=== PATIENT | male | born 1950 | race Caucasian/White ===

== ENCOUNTER 2020-07-26 14:42 | Outpatient (REF) | payer BC, SELFPAY ==
--- NOTE | ~2020-07-26 | XR_ITS ---
EXAMINATION: XR CHEST CLINICAL INFORMATION: Hemoptysis for 5 days COMPARISON: None TECHNIQUE: 2 views of the chest were obtained. FINDINGS: There is no acute airspace consolidation, groundglass opacity, atelectasis, or effusion. The heart is normal in size. The costophrenic sulci are clear. The hilar and mediastinal contours are unremarkable. Bony structures again show degenerative changes in the thoracic spine with some scattered bridging osteophytes. Right paraspinal bridging osteophyte again suggested at the T6-T7 overlying lower right paratracheal region. There are incidental calcified costal cartilages. XR/XR chest 2V IMPRESSION: Unremarkable examination.
== END 2020-07-26 14:43 | disposition home or self-care (01) ==
LOC: HO.HMGCX 14:42
PROVIDERS: PCP Internal Medicine; Visit Provider Internal Medicine
DX: R04.2 Hemoptysis (principal)
CPT/HCPCS: 71046

== ENCOUNTER 2020-12-06 14:03 | Outpatient (REF) | payer BC, MEDICARE, SELFPAY ==
--- NOTE | ~2020-12-06 | XR_ITS ---
EXAMINATION: XR LUMBOSACRAL SPINE CLINICAL INFORMATION: Lower back pain. COMPARISON: Lumbar spine MRI dated 11/17/2014. TECHNIQUE: 3 views of the lumbosacral spine. FINDINGS: Mild levocurvature of the lumbar spine. The lumbar lordosis is maintained. No acute fracture or subluxation. No loss of vertebral body height. Multilevel loss of intervertebral disc height with prominent anterior endplate osteophytes. Bilateral facet arthropathy at L4-S1. No lytic or blastic osseous lesion. Atherosclerotic calcifications. XR/XR lumbar spine 2-3V IMPRESSION: Prominent multilevel degenerative disc disease with bilateral facet arthropathy at L4-S1. Findings have progressed when compared to the prior MRI.
== END 2020-12-06 14:04 | disposition home or self-care (01) ==
LOC: HO.HMGCX 14:03
PROVIDERS: PCP Internal Medicine; Visit Provider Internal Medicine
DX: Z13.89 Encounter for screening for other disorder (principal)
CPT/HCPCS: 72100

== ENCOUNTER 2020-12-17 08:46 | Outpatient (REF) | payer BC, MEDICARE, SELFPAY ==
--- NOTE | ~2020-12-17 | MR_ITS ---
EXAMINATION: MR LUMBAR SPINE WITHOUT CONTRAST CLINICAL INFORMATION: Low back pain with radiculopathy. Left-sided paresthesias. COMPARISON: Lumbar spine radiographs 12/06/2020. Lumbar spine MRI 11/17/2014. TECHNIQUE: MRI of the lumbar spine was obtained using routine sequences without contrast. FINDINGS: There is spinal scoliosis with a subtle leftward convex curvature centered at L3. Slight left lateral subluxation of L3 on L4. Alignment is otherwise normal in the sagittal dimension. Vertebral heights are preserved. Minimal type I degenerative endplate changes at L2-L3, L3-L4, and L4-L5. There is loss of intervertebral disc height and T2 signal intensity at multiple levels related to disc degeneration. The conus medullaris is located at L1-L2. No mass effect on the conus. Visualized distal cord signal intensity is normal. At L1-L2 there is a slightly bulging disc. Bilateral facet degenerative change. No canal stenosis. No mass effect on the traversing or foraminal nerve roots. At L2-L3 there is a diffusely bulging disc. Bilateral facet degenerative change. No canal stenosis. No mass effect on traversing or foraminal nerve roots. At L3-L4 there is a diffusely bulging disc. Bilateral facet degenerative change. Moderate to severe canal stenosis. Subarticular zone narrowing causes abutment and possible compression of both traversing L4 nerve roots. Mild mass effect on the foraminal/extraforaminal segment of the right L3 nerve root. At L4-L5 there is a tiny central extrusion superimposed upon a bulging disc with 0.4 cm caudal subligamentous extension of extruded disc material. Bilateral facet degenerative change. No canal stenosis. No mass effect on the traversing or foraminal nerve roots. At L5-S1 there is an asymmetrically bulging disc to the left. Bilateral facet degenerative change. No canal stenosis. Moderate compression of the left L5 foraminal nerve root. Limited visualization of the retroperitoneal anatomy reveals no abnormal finding. Psoas and paraspinal muscle groups are symmetric. MR/MR lumbar spine wo con IMPRESSION: There is multilevel degenerative spondylosis of the lumbar spine. Moderate to severe canal stenosis at L3-L4. Otherwise no canal compromise. There are varying degrees of mass effect on the traversing and foraminal segments the nerve roots as described above. For instance at L5-S1 there is moderate to severe compression of left L5 foraminal nerve root.
== END 2020-12-17 08:47 | disposition home or self-care (01) ==
LOC: HO.MRI 08:46
PROVIDERS: PCP Internal Medicine; Visit Provider Internal Medicine
DX: M54.16 Radiculopathy, lumbar region (principal); R20.2 Paresthesia of skin
CPT/HCPCS: 72148

== ENCOUNTER 2024-06-07 13:19 | Outpatient (AMB) | payer BC, MEDICARE, SELFPAY ==
--- OUTSIDE RECORDS SUMMARY | 2024-06-07 13:21 | XMS_ITS ---
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 Generated for Gioi kameron/Orly/eTransmitting on:?06/07/2024 01:21 PM EDT
--- OUTSIDE RECORDS SUMMARY | 2024-06-07 13:22 | XMS_ITS | Patient Health Record ---
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 Accordion Tuner Name Role Phone David Guevara MD Primary Care Provider Unavailab Tone Claudio Unavailable [phone] Allergies No Known Allergies Reason For Referral No Information Medications Medication SIG (Take, Route, Fr equency, Duration) Notes Start Date End Date Status Gabapentin 800 MG 1 tablet Orally Once a day Active Warfarin Sodium Not- Taking Ezetimibe 10 MG 1 tablet Orally Once a day Active Social History Tobacco Use: Social History Observation Description Date Details (start date - stop date) Current Smoker NA - NA Tobacco use other than smoking: Question Answer Notes Are you an other tobacco user? No Tobacco Control (Standard) Question Answer Notes Tobacco use: Current smoker How many cigarettes a day do you smoke? 11-20 Additional Findings: Tobacco user Modera te cigarette smoker (10-19 cigs/day) AUDIT-C (Standard) Question Answer Notes Did you have a drink containing alcohol in the p ast year? No Points 0 Interpretation Negative Problems Problem Type SNOMED Code ICD Code Onset Dates Problem Status W/U Status Risk Notes Problem Atherosclerosis of [place] arteries of the extremities ([id number]) Atherosclerosis of [place] artery of both lower extremities, with unspecified presence of clinical manifestation (I70.203) Active confirmed Q7(A), Q8(2B), Q9(1B,2 C) Vital Signs Blood pressure diastolic 80 mm Hg 03/18/2024 Height 5ft 10in in 03/18/2024 Blood pressure systolic 125 mm Hg 03/18/2024 Weight 190 lbs 03/18/2024 BMI 27.26 kg/m2 03/18/2024 Encounters Encounter Location Date Provider Diagnosis [facility] [address] [address] 03/18/2024 Tone Thomas Pain in left foot M79.672 ; Pain in left ankle and joints of left foot M25.572 ; Bursitis of intermetatarsal bursa of left foot M77.52 ; Metatarsalgia, left foot M77.42 and Atherosclerosis of [place] artery of both lower extremities, with unspecified presence of clinical manifestation I70.203 [facility] [address] [address] 03/18/2024 Tone Thomas Assessments Encounter Date Diagnosis (ICD Code) Assessment Notes Treatment Notes Treatment Clinical Notes Section Notes 03/18/2024 Pain in left ankle and joints of left foot (ICD-10 - M25.572) 03/18/2024 Pain in left foot (ICD-10 - M79.672) 03/18/2024 Bursitis of intermetatarsal bursa of left foot (ICD-10 - M77.52) 03/18/2024 Metatarsalgia, left foot (ICD-10 - M77.42) 03/18/2024 Atherosclerosis of [place] artery of both lower extremities, with unspecified presence of clinical manifestation (ICD-10 - I70.203) Q7(A), Q8(2B), Q9(1B,2C) Plan Of Treatment Pending Test Test Name Order Date X ray : Foot, right 2V 12/17/2013 X ray : Foot, left 3V 05/28/2013 X ray : Foot, left 3V 03/18/2024 [id number] TENDON SHEATH/LIGAMENT 1 03/23/[id number] TENDON SHEATH/LIGAMENT 0 06/10/2014 60500, [id number] Neuroma/Injection 04/01/19 16 Insurance Providers Payer Name Payer Address Payer Phone Subscriber Number Group Number Insured Name Patient Relationship to Insured Coverage Start Date Coverage End Date [employer] 65 Medicare Preferred [address] [place] [address] [phone] [id number] David Varma Self - patient is the insured Medical (General) History Medical History History ICD Code Back,Hip,and Knee pain Measles Chicken pox blood clots Arthritis Surgical History Surgery Date(Month/Year) knee surgery shoulder surgery Hospitalization History Reason Date(Month/Year) Patient went to [facility] ER for a blood clot in his left leg. 10/14/2013
--- OUTSIDE RECORDS SUMMARY | 2024-06-07 13:22 | XMS_ITS ---
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 Name Role Phone David Guevara MD Primary Care Provider Unavailab Tone Claudio Unavailable [phone] Allergies No Known Allergies REASON FOR VISIT Foot pain Medications Medication SIG (Take, Route, Fr equency, [...] W/U Status Risk Notes Problem Atherosclerosis of [place] arteries of the extremities ([id number]) Atherosclerosis of [place] artery of both lower extremities, with unspecified presence of clinical manifestation (I70.203) Active confirmed Q7(A), Q8(2B), Q9(1B,2 C) Vital Signs Height 5ft 10in in 03/18/2024 Weight 190 lbs 03/18/2024 BMI 27.26 kg/m2 03/18/2024 Blood pressure systolic 125 mm Hg 03/18/20 24 Blood pressure diastolic 80 mm Hg 024 Encounters Encounter Location Date Provider Diagnosis [facility] [address] [place] [address] 03/18/2024 Tone Thomas Pain in left foot M79.672 ; Pain in left ankle and joints of left foot M25.572 ; Bursitis of intermetatarsal bursa of left foot M77.52 ; Metatarsalgia, left foot M77.42 and Atherosclerosis of [place] artery of both lower extremities, with unspecified presence of clinical manifestation I70.203 Assessments Encounter Date Diagnosis (ICD Code) Assessment Notes Treatment Notes Treatment Clinical Notes Section Notes 03/18/2024 Pain in left foot (ICD-10 - M79.672) 03/18/2024 Pain in left ankle and joints of left foot (ICD-10 - M25.572) 03/18/2024 Bursitis of intermetatarsal bursa of left foot (ICD-10 - M77.52) 03/18/2024 Metatarsalgia, left foot (ICD-10 - M77.42) 03/18/2024 Atherosclerosis of [place] artery of both lower extremities, with unspecified presence of clinical manifestation (ICD-10 - I70.203) Q7(A), Q8(2B), Q9(1B,2C) Plan Of Treatment Pending Test Test Name Order Date X ray : Foot, left 3V 03/18/2024 Next Appt Details Follow Up: prn, Reason: Progress Notes * David VARMA MDOB:1950 (73 yo M)Acc No.[id number]:03/18/2024 Progress Notes Patient:?David VARMA Provider:?Tone Guzman DPM :1950???Age:73 Y???Sex:Male Ming e:03/18/2024 Address:[address] [place], [place] [id number] Pcp:David Guevara MD Subjective: * Chief Complaints: * ???Foot pain * HPI: ???Foot Pain:?Location:?Bottom, Forefoot, LEFT.?Duration:?several years.?Course:?worse.?Aggravated:?any pressure, standing, walking.?Treatments:?rest/alter normal daily activity, change in shoes, innersoles which are several years old, medication ( oral anti-inflammatories - Naproxen, Gabapentin?).? * ROS:?General/Constitutional:?Nausea?denies.?Vomiting?denies.?Hunger Thirst?denies.?Loss appetite?denies.?Chills?denies.?Fatigue?denies.?Fever?denies.?Night Sweats?denies.?Unexplained weight loss?denies.?Ophthalmologic:?Blurred vision?denies.?Red eye?denies.?HEENTM:?Dentures?denies.?Dizziness?denies.?Glasses/contacts?denies.?Retinopathy?de nies.?Blurred/double vision?denies.?TMJ?denies.?Discharge/drainage?denies.?Implants?denies.?Hard of hearing denies.?Difficulty chewing/swallowing/speaking?denies.?Nose bleeds?denies.?Sore mouth?denies.?Swollen glands?denies.?Respiratory:?On Oxygen?denies.?Pneumonia/pleurisy?denies.?Bronchitis?denies.?Emphysema?denies.?C oughing?denies.?Cough blood?denies.?Shortness of breath?denies.?Wheezing?denies.?Cardiovascular:?Pacemaker?denies.?MVP?denies.?WPW?denies.?CHF?denies.?Heart attack?denies.?Septal defect?denies.?Rapid beat?denies.?Chest pain ?denies.?Atrial Fib.?denies.?Murmur/Palpitations?denies.?Gastrointestinal:?Hemorrhoids?denies.?Stomach/Abdominal pain?denies.?Dark blood stool?denies.?Irritable bowel ?denies.?Constipation?denies.?Diarrhea?denies.?Vomiting?denies.?Hematology:?Swelling?denies.?Bruising?denies.?Bleeding problem?denies.?Genitourinary:?Blood urine?denies.?Frequent/Painfu/urination/bladder control?denies.?Kidney stones?denies.?Infection (UTI)?denies.?Nephropathy?denies.?Musculoskeletal:?Hammertoes?denies.?Bunions?denies.?Scoliosis/kyphosis?denies.?Muscle cramps / walking?denies.?Generalized aches and pains?admits.?Weakness?denies.?Integ.:?[place]?denies.?Scars?denies.?Corns/calluses?denies.?Ingrown nails?denies.?Painful nails?denies.?Rashes?denies.?Neurologic:?Difficulty sleeping?denies.?Bipolar?denies.?Brain disorder?denies.?Balance trouble?denies.?Confusion?denies.?Fainting/blackouts?denies.?Headache?denies.?Tr emors?denies.? * Medical History:? * Surgical History:?knee surge ry shoulder surgery * Hospitalization/Major Diagno stic Procedure:?Patient went to [facility] for a blood clot in his left leg. 10/14/2013 * Family History:?Mother: dece ased, diagnosed with Unspecified cerebral artery occlusion with cerebral infarction.?Father: , diagnosed with Other malignant neoplasm of unspecified site.? * Social History:?Tobacco Use:?Tobacco use other than smoking?Are you an other tobacco user??No ?Tobacco Control (Standard)?Tobacco use:?Current smoker ?How many cigarettes a day do you smoke??11-20 ?Additional Findings: Tobacco user?Moderate cigarette smoker (10-19 cigs/day) ???Drugs/Alcohol:?Drugs?Have you used drugs other than those for medical reasons in the past 12 months??No ???Miscellaneous:?Caffeine: yes, 2-3 cups per day. ?Children: yes, 2. ?Exercise: yes. ?Marital status: . ?Occupation: Retired. ???Drug/Alcohol:?AUDIT-C (Standard)?Did you have a drink containing alcohol in the past year??No ?Points?0 ?Interpretation?Negative * Medications:?TakingEzetimibe 10 MG Tablet 1 tablet Orally Once a day Gabapentin 800 MG Tablet 1 tablet Orally Once a day Taking Ezetimibe 10 MG Tablet 1 tablet Orally Once a day Taking Gabapentin 800 MG Tablet 1 tablet Orally Once a day Not-Taking/PRNWarfarin Sodium Medication List reviewed and reconciled with the patientNot-Taking/PRN Warfarin Sodium Medication List reviewed and reconciled with the patient * Allergies:?N.K.D.A.yes[Tanvir lyons Verified] Objective: * Vitals:?Ht: 5ft 10in, Wt:190 , BMI:27.26, Shoe size: 13, BP:125/80mm Hg, Ht-cm: 177.8 cm, Wt-k.18 kg. * Examination: ???Orthopedic: ?MUSCLE STRENGTH:?5/5 all groups in a symmetrical fashion, B/L.?GAIT ABNORMALITY:?antalgic.?FOOT MORPHOLOGY:?Pes Cavus structure.?MPJ PATHOLOGY:? Pain, swelling, and inflammation to plantar MPJ(s),2nd,3rd, LEFT, No MPJ pain with ROM, [ - ] Ecchymosis.?FOOTWEAR:?worn, OT were inspected and noted to be severely worn , in poor condition not giving proper support at the present time.?X-Rays - IMAGING REPORT: ?Clinical Indication(s):? Evaluate for Fracture.?Views:?3 views of Foot, AP, LAT, LO, LEFT??Taken by trained?Podiatric Product Development Actuary (?S. F.).?Findings:?normal bone and soft tissue density consistent for patients age and sex, elongated plantarflexed [ 2nd, 3rd] metatarsal with hypertrophied MTH.?HAV:?metatarsus primus elevatus, moderate.?Fracture:?Negative fractures identified.?Neurological: ?SENSORY:?Neurological exam reveals intact sensorium, pain sensation normal, vibration sensation intact, pinprick sensation is normal in the lower extremities, Pt denies, anesthesia, burning, paresthesia, tingling, B/L.?TINEL'S COMPRESSION:? Negative tarsal tunnel, weston pedis, and medial calcaneal nerves, Left.?Neuroma Pain: ?PALPATION:?No interspace pain noted on palpation, LEFT.?Vascular: ?DP PULSES (B):? 0/4, B/L.?PT PULSES (B):?1/4, B/L.?CAPILLARY FILL TIME:? delayed, all digits, B/L.?TROPHIC CONDITION-TEXTURE/ELASTICITY/TURGOR/HAIR GROWTH (B):? decreased, fragile, thin, shiny skin, with sparse to absent hair growth, B/L.?TEMPERTURE GRADIENT (C):? decreased, cool to cool, proximal to distal, B/L.?PIGMENTATION:?rubrous, B/L.?EDEMA (C):?absent, B/L.?CLAUDICATION (C):?denies, B/L.?REST PAIN:?denies, B/L.?PARESTHESIA (C):?absent, B/L.?BURNING (C):?absent, B/L.?Dermatologic: ?SKIN FINDINGS:?Skin exam reveals Keratotic lesion(s) located at, Plantar Heel(s), B/L.?General Examination: ?GENERAL APPEARANCE:?Reveals a pleasant, alert, well nourished, well- developed, well hydrated individual, who demonstrates proper attention to hygiene/body habitus, and is in no acute distress, Pt serves as own historian for office visit today.?ORIENTED:?person, place, and time.? Assessment: * Assessment: 1.?Pain in left ankle and harish ints of left foot - M25.572???2.?Pain in left foot - M79.672 (Primary)???3.?Bursitis of intermetatarsal bursa of left foot - M77.52???Specify :Chronic problem, Worse (4)???4.?Metatarsalgia, left foot - M77.42???Specify :Chronic problem, Worse (4)???5.?Atherosclerosis of [place] artery of both lower extremities, with unspecified presence of clinical manifestation - I70.203???Notes :Q7(A), Q8(2B), Q9(1B,2C)??? Plan: * Treatment: * Procedure Codes:?39030 X-RAY EXAM OF LEFT FOOT 3V, Modifiers: 26 , LT * Preventive Medicine:? ??Counseling:?Tobacco use:?Type of Tobacco Use Cessation Counseling provided?Smoking effects education ?Patient counseled on the dangers of smoking and urged to quit:?03/18/2024 ?Discussion:?-04: Office or other outpatient visit for the evaluation and management of a new patient, which required a medically appropriate history and/or examination and MODERATE level of DECISION MAKING for: 1 OR MORE CHRONIC PROBLEM(S) THATS WORSENING, 2 STABLE CHRONIC PROBLEMS, A NEWLY DIAGNOSED PROBLEM WITH UNCERTAIN PROGNOSIS, AN ACUTE COMPLICATED INJURY WITH MULTIPLE TREATMENT OPTIONS, OR AN ACUTE PROBLEM WITH ACCOMPANYING SYSTEMIC SYMPTOMS, THAT POSE(S) A MODERATE RISK OF MORBIDITY. THIS CONDITION MAY ALSO INCLUDE RX DRUG MANAGEMENT, OR A DECISON FOR MINOR SURGERY. The visit on the day of the encounter encompassed interpreting the data and educating the patient as to the nature of their condition, treatment options available according to their individual PMH, meds, allergies, and overall health/living conditions, as well as any potential risks or complications that may occur from a failure to adhere to, and participate in, the recommended course of therapy. The discussion included a complete verbal, and/or written explanation of the examination results, any x-rays taken, the proposed diagnosis, and outline of the treatment plan. A schedule for future care needs was also explained. The patient verbalized an understanding of the instructions at this time and agreed to be an active participant in their treatment. If the patient should think of any questions or concerns after the visit, I have encouraged the patient to call the office.?Metatarsalgea:?I explained to the patient the possible etiologies of their Metatarsalgea Foot pain, including foot type/shoegear/activity level/exercise routine and the risks/benefits of all the different treatment options for pain including: No treatment at all, Rest, Ice, NSAIDs(only if well tolerated after meals), New/supportive Shoe gear, Strappings and Tapings, Foot/Ankle AFO Bracing, Stretching exercises, Deep Tissue Massage, Arch support/shoe inserts, Custom orthoses, Topical analgesics including Aspercream/Voltaren gel, Physical Therapy, Cortisone injection therapy, EPAT/ESWT. Advantages and disadvantages of each option were discussed and the patients questions re: shoe gear, custom vs prefabricated inserts, activity level, PO vs Topical medications (and their respective potential complications/drug interactions/side effects), and consistency in home treatment regimens for optimal success were answered to their verbally confirmed satisfaction.?Orthotics:?I explained to the patient the benefits of OT use. I explained that orthoses are medically necessary to decrease the foot pain through proper mechanical control, support of their foot, decrease pain under the painful metatarsal by supplementing the soft tissue, cushion the forefoot by supplementing the soft tissue, Prefabricated orthoses ( Comfort Plus ( E ), [employer] ( E ) ), were dispensed. The inserts were comfortably fit to the patients feet in both weight-bearing and non-weight bearing attitudes. The patient was instructed to increase the amount of time they were wearing the inserts, starting with one hour the first day and gradually increasing the amount of time worn until they are using them counter intelligence and in all activities. They were asked to call the office if any signs of irritation were noted such as redness, blistering or callous formation. Instuctions were given for their usage and proper break-in/wear/care. Pt expressed comfort with and tolerance to inserts dispensed.?P.R.I.C.E.:?The patient was counseled on the use of P.R.I.C.E. and NSAIDS (if well tolerated) to aid in the recovery from their painful condition.?Podiatric Surgery Counseling:?Due to patients age and medical history I do not recommend moving forward with surgery, Due to patients current tobacco social history I do not recommend moving forward with surgery until the patient is at least 3 months of documented tobacco product free.?Shoe Gear Counseling:?The patient and I reviewed the types of shoes they should be wearing. My recommendation included obtaining a well-fitted shoe with a good supportive, non-foldable nor twistable sole, plenty of toe/room for the forefoot, and proper arch support. Based on todays examination, I recommended the patient look for new shoes, by having their feet professionally measured. We discussed that generally the best time of the day for a shoe fitting is the afternoon. Different shoes types and brands to best match the patients occupation and vocation were discussed. Specific brand selection will be up to the patient, their individual foot condition/deformities, and fit. The patient and I reviewed the standard new shoe break in period by wearing them for a few hours a day while checking for redness or sores as wear time is increased. The patient verbally confirmed to understanding the information discussed.?Steriod Injection:?I explained that a steroid and local anesthetic injections are administered to relieve pain and inflammation and thereby meant to improve function. I explained the possible complications including but not limited to signs/symptoms of steroid flare, infection, bruising, atrophy, discoloration of skin, change/deviation in toe position, and that additional injections may be necessary, cortisone post-injection informative educational handout was dispensed to and reviewed with the patient, In order to prevent any compromise of an effective immune response, it was recommended the patient refrain from any vaccine therapy for the month before or after injection. Patient verbally confirmed understanding the previously mentioned protocol.? ??Screening/Special Tests:?Fall Risk?Screening:?No falls in the past year ?FALLS: Screening for Future Fall Risk?Have you had any falls with injury in the past year??No * Follow Up:?prn * Images: * Sign off status: Completed true * Provider:?Tone Guzman DPM Date:?2023 Generated for Clara melo/Orly/eTransmitting on:?06/07/2024 01:21 PM EDT History and Physical Notes * HPI (History of Present Illness) Category Sub-Category Detail Notes Category Not es Foot Pain Location: Bottom, Forefoot, LEFT Duration: several years Course: worse Aggravated: any pressure, standi ng, walking Treatments: rest/alter normal da uma activity, change in shoes, innersoles which are several years old, medication ( oral anti-inflammatories - Naproxen, Gabapentin ) Examination Category Sub-Category Detail Notes Category Not es Neuroma Pain PALPATION: No interspace pain noted on palpation, LEFT Neurological SENSORY: Neurological exa m reveals intact sensorium, pain sensation normal, vibration sensation intact, pinprick sensation is normal in the lower extremities, Pt denies, anesthesia, burning, paresthesia, tingling, B/L TINEL'S COMPRESSION: Negative tarsal orlando sophy, weston pedis, and medial calcaneal nerves, Left Dermatologic SKIN FINDINGS: Skin exam reveal s Keratotic lesion(s) located at, Plantar Heel(s), B/L Orthopedic GAIT ABNORMALITY: antalgic FOOT MORPHOLOGY: Pes Cavus structure FOOTWEAR: worn, OT were inspec xander and noted to be severely worn , in poor condition not giving proper support at the present time MPJ PATHOLOGY: Pain, swelling, and inflammation to plantar MPJ(s),2nd,3rd, LEFT, No MPJ pain with ROM, [ - ] Ecchymosis MUSCLE STRENGTH: 5/5 all groups in a symmetrical fashion, B/L General Examination GENERAL APPEARANCE: Reveals a pleasant, alert, well nourished, well-developed, well hydrated individual, who demonstrates proper attention to hygiene/body habitus, and is in no acute distress, Pt serves as own historian for office visit today ORIENTED: person, place, and t dana Vascular DP PULSES (B): 0/4, B/L PT PULSES (B): 1/4, B/L CAPILLARY FILL TIME: delayed, all digits , B/L TEMPERTURE GRADIENT (C): decreased, cool to cool, proximal to distal, B/L TROPHIC CONDITION-TEXTURE/ELASTICITY/TURGOR/HAIR GROWTH (B): decreased, fragile, thin, shiny skin, wi th sparse to absent hair growth, B/L EDEMA (C): absent, B/L CLAUDICATION (C): denies, B/L REST PAIN: denies, B/L PIGMENTATION: rubrous, B/L PARESTHESIA (C): absent, B/L BURNING (C): absent, B/L X-Rays - IMAGING REPORT Findings: normal b one and soft tissue density consistent for patients age and sex, elongated plantarflexed [ 2nd, 3rd] metatarsal with hypertrophied MTH Fracture: Negative fractures i dentified HAV: metatarsus primus el evatus, moderate Views: 3 views of Foot, AP, LAT, LO, LEFT Taken by trained Podiatric Product Development Actuary ( S. F.) Clinical Indication(s): Evaluate for Fra cture
--- NOTE | 2024-06-07 13:25 | AM.OFFWIN_ITS ---
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 Intake Note: Pt is here today c/o rasied rash all over body started yesterday itchyness Allergies No Known Allergies Allergy (Unverified 06/07/24 13:31) Medication List - Last Reconciled 06/07/24 by Sajan Álvarez MD diphenhydramine HCl (Benadryl Allergy) 50 mg (2 x 25 mg) PO TID PRN 5 days ezetimibe 10 mg PO DAILY gabapentin 800 mg PO TID naproxen 500 mg PO BID omeprazole 20 mg PO BID prednisone 40 mg (2 x 20 mg) PO DAILY 5 days triamcinolone acetonide 0.1% 1 appl topical BID-TID HPI 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 HPI Details patient has worsening rash size PCP recently who gave him triamcinolone when rash was just a small patch on his wrist now has rash on thighs and groin, inside of elbows and all of forearms as well as on torso new medication is omeprazole but he says the rash preceded this no other new medications no known exposures to new foods or chemicals patient otherwise feels well today Review of Systems Const Denies chills, Denies fatigue, Denies fever(s), Denies headache(s) and Denies weakness ENT Denies dizziness and Denies headache(s) Card Denies dyspnea Resp Denies cough, Denies dyspnea, Denies wheezing and Denies other ( shortness of breath) Musc Denies numbness and Denies tingling Skin/Breast Details: rash -see HPI Neuro Denies dizziness, Denies headache(s), Denies numbness, Denies tingling, Denies paresthesias and Denies weakness Psych Denies anxiety and Denies depression Endo Denies fatigue Aller/Immun Denies wheezing Physical Exam Vital Signs: Last Vital Signs Temp 97.7 F 06/07/24 13:26 Pulse 86 06/07/24 13:26 Resp 16 06/07/24 13:26 BP 124/80 03/22/25 13:26 Pulse Ox 95 06/07/24 13:26 Oxygen Delivery Method Room Air 06/07/24 13:26 BMI result Body Mass Index 27.2 Const General: no acute distress and well developed Nutritional Appearance: well nourished Orientation/consciousness: patient oriented x3 HEENT Head: Yes normocephalic and Yes atraumatic Eyes General: appearance normal, both eyes and all related structures Pupils: Equal, round and reactive pupils present EOM: EOMs intact bilaterally Resp Effort & Inspection: normal respiratory effort Skin Other: hives like rash on torso, forearms, anterior elbows, thighs and groin Neuro General: patient oriented x3 and gait normal Cranial nerves: Yes Equal, round and reactive pupils present Psych Affect: normal affect Assessment & Plan Assessment & Plan (1) Urticaria: Code(s): L50.9 - Urticaria, unspecified Plan: worsening urticarial rash/ allergy reaction unclear trigger - watch for trigger loose fitting clothing and keep cool cool compresses and cool shower Benadryl and will give him a short course of prednisone if symptoms return or do not resolve, follow-up with PCP to consider referral to immunology for testing Medications: New prednisone 40 mg (2 x 20 mg) PO DAILY 5 days 10 tabs 0RF diphenhydramine HCl (Benadryl Allergy) 50 mg (2 x 25 mg) PO TID 5 days PRN 30 tabs 0RF urticaria Coding Level of Care Code Est Pt Level 3 (42341) Diagnoses Urticaria L50.9
[2024-06-07 13:26] VITALS: BP 124/80; PULSE 86; RESP 16; TEMP 36.5; O2SAT 95; BMI 27.2
== END 2024-06-07 14:16 | disposition home or self-care (01) ==
PROVIDERS: PCP Internal Medicine; Visit Provider Family Medicine
DX: L50.9 Urticaria, unspecified (principal)

== ENCOUNTER 2024-10-21 08:57 | Outpatient (AMB) | payer MEDICARE, SELFPAY ==
--- NOTE | 2024-10-21 08:58 | A.OFFPC_ITS ---
Vital Signs 10/21/24 09:02 Height 5 ft 8.9 in Weight 189 lb BMI 28.0 BP 147/70 H Respiration 14 Pulse 82 Pulse Source Pulse Oximeter Temp 97.7 F Temp Source Temporal Artery Scan Pulse Oximetry (%) 97 Oxygen Delivery Method Room Air Intake Visit Reasons: establish care - see comments Hardwood Floor Layer Required: No Accompanied by: Spouse Allergies No Known Allergies Allergy (Unverified 10/21/24 09:21) Medication List - Last Reconciled 10/21/24 by Reilly Self MD ezetimibe 10 mg PO DAILY omeprazole 20 mg PO BID Tobacco use date assessed: 10/21/24 Fall risk assessment: 1 Fall in past year Last assessed Fall Risk: 10/21/24 Dental Screening Dental Screen Date: 10/21/24 Did you have a dental visit in the last 12 months?: Yes Did you have a dental problem in the last 6 months where you did not have access to dental care?: No Was dental information given to patient?: Patient has dentist HPI establish care - see comments HPI Details Transferring care from Dr Guevara [facility] Medical History (Updated 10/21/24 @ 09:23 by Reilly Self MD) Spinal stenosis Surgical History History of colonoscopy (~02/20/18) Family History (Updated 10/21/24 @ 09:08 by NAPOLEON Mcgraw) Father Pancreatic cancer Mother Stroke Social History (Updated 10/21/24 @ 09:08 by NAPOLEON Mcgraw) Housing: House Alcohol intake: current Alcohol intake frequency: holidays/special occasions only Patient Tobacco Use Status: Current everyday Tobacco user Tobacco use type: Cigarette Cigarette Packs Per Day: 1 Cigarettes Per Day: 20 service: No Current occupational status: retired Cognitive needs: No Hearing needs: No Vision needs: Yes (reading glasses) Questionnaire PHQ-9 Over the last 2 weeks, how often have you been bothered by any of the following problems? 1. Little interest or pleasure in doing things: not at all 2. Feeling down, depressed, or hopeless: not at all 3. Trouble falling or staying asleep, or sleeping too much: not at all 4. Feeling tired or having little energy: not at all 5. Poor appetite or overeating: not at all 6. Feeling bad about yourself - or that you are a failure or have let yourself or your family down: not at all 7. Trouble concentrating on things, such as reading the newspaper or watching television: not at all 8. Moving or speaking so slowly that other people could have noticed. Or the opposite - being so fidgety or restless that you have been moving around a lot more than usual: not at all 9. Thoughts that you would be better off or of hurting yourself in some way: not at all Total score: 0 Depression Screening Interpretation: Negative Depression Screening Done: Yes Source: Developed by Drs. Torres De La Paz, Sara Alexander, Dale Roque and colleagues, with an educational patsy from [employer]. Thrive Questionnaire Date Thrive assessed: 10/21/24 I am a: Patient What is your living situation today?: I have a steady place to live Within the past 12 months, did the food you bought not last and you didn't have the money to get more?: Never true Within the past 12 months, did you worry whether your food would run out before you got money to buy more?: Never true Do you have trouble paying for medicines?: No Do you have trouble getting transportation to medical appointments?: No Do you have trouble paying your heating and electricity bill?: No Do you have trouble taking care of your child, family member or friend?: No Do you have trouble with day-to-day activities such as bathing, preparing meals, shopping, managing finances, etc.?: No Are you currently unemployed and looking for a job?: No Are you interested in more education?: No Please select the resources that you would like help with: None THRIVE Score: 0 AUDIT C Alcohol Use Questionnaire (AUDIT-C) 1. How often do you have a drink containing alcohol?: Monthly or less 2. How many drinks containing alcohol do you have on a typical day when you are drinking?: 1 or 2 3. How often do you have six or more drinks on one occasion?: Never Total Score: 1 CHARITY-7 AMB Questionnaire CHARITY-7 Date CHARITY - 7 assessed: 10/21/24 Feeling nervous, anxious, or on edge: 0 = Not at all Not being able to stop or control worryin = Not at all Worrying too much about different things: 0 = Not at all Trouble relaxin = Not at all Being so restless that it is hard to sit still: 0 = Not at all Becoming easily annoyed or irritable: 0 = Not at all Feeling afraid as if something awful might happen: 0 = Not at all Total CHARITY-7 score (0-4 normal; 5-9 mild; 10-14 moderate; 15-21 severe): 0 Source: Developed by Drs. Torres De La Paz, Sara Alexander, Dale Roque and colleagues, with an educational patsy from [employer]. Physical exam (Primary Care) Vital Signs: Last Vital Signs Temp 97.7 F 10/21/24 09:02 Pulse 82 10/21/24 09:02 Resp 14 10/21/24 09:02 BP 147/70 H 10/21/24 09:02 Pulse Ox 97 10/21/24 09:02 Oxygen Delivery Method Room Air 10/21/24 09:02 BMI result Body Mass Index 28.0 Tobacco/Smoking Status: Tobacco use Status Tobacco use date assessed 10/21/24 10/21/24 09:02 Patient Tobacco Use Status Current everyday Tobacco 10/21/24 09:08 Tobacco use type Cigarette 10/21/24 09:08 PHQ-9: PHQ-9 Score PHQ-9: Total score 0 10/21/24 09:02 Depression Screening Interpretation: Negative Thrive Assessment: Date of Thrive Assessment Date Thrive assessed 10/21/24 10/21/24 09:02 Coding Level of Care Code New Pt Level 4 (33009) Complex EM visit Add On G2211 Diagnoses Spinal stenosis M48.00 Nocturia R35.1 Assessment & Plan Assessment & Plan (1) Spinal stenosis: Code(s): M48.00 - Spinal stenosis, site unspecified Category: Medical Plan: Condition is stable. Does not want any surgical interventions. Currently not taking Neurontin. Has enough medications at home. When he restarts the med, I advised him to take Neurontin 800 mg once a day. (2) Nocturia: Code(s): R35.1 - Nocturia Plan: PSA and other blood work drawn. Will call with results Plan History of Present Illness - The patient is a 73-year-old male presenting with nocturia. - Reports nocturia for about a year, with urination every three hours at night. - Previously prescribed medication caused dizziness, leading to discontinuation. - History of lumbar spinal stenosis, considered for surgery but declined due to blood clot concerns. - Gabapentin was used for nerve pain, initially effective but later less so, leading to cessation a month ago. - History of blood clots influenced decision against spinal surgery. - Smokes half a pack to a pack daily, occasional alcohol consumption. - Recommended colon cancer screening with Cologuard due to history of polyps. 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 - Smoking: Smokes half a pack to a pack of cigarettes daily. - Alcohol: Consumes alcohol occasionally. - Living situation: Lives with spouse, maintains own house and yard. Review of Systems - Genitourinary: Reports nocturia, urinating every three hours at night for about a year. - Neurological: Reports dizziness with previous medication use. - Musculoskeletal: Reports nerve pain due to lumbar spinal stenosis. Physical Exam General: Cooperative and healthy appearing Nutritional Appearance: Well nourished Orientation/consciousness: Patient oriented x3 Limitations: No limitations Head: Normal to inspection General: Appearance normal, both eyes and all related structures Neck: Normal visual inspection Chest: Normal palpation of entire chest wall Respiratory: Smokes half a pack to a pack a day ormal respiratory effort Neurology: Patient oriented x3 Results Plan 1. Nocturia - Blood work planned to evaluate prostate health and exclude other causes. - Cautious approach to medication restart due to prior dizziness. 2. Lumbar Spinal Stenosis - Surgery was considered but not pursued due to blood clot risk. - Gabapentin was used but stopped due to decreased effectiveness. 3. Preventative Care: Colon Cancer Screening - Cologuard test recommended due to polyp history, with home completion instructions. Discussion Notes I discussed with the patient the need for blood work to evaluate prostate health due to nocturia. We also talked about the potential to restart medication cautiously, considering previous dizziness. For lumbar spinal stenosis, surgery was considered but not pursued due to blood clot concerns. Gabapentin was used but discontinued due to reduced efficacy. I recommended a Cologuard test for colon cancer screening due to a history of polyps, with instructions for home completion. Patient Instructions - Complete blood work to evaluate prostate health. - Consider restarting medication cautiously if needed, due to previous dizziness. - Follow instructions for Cologuard test for colon cancer screening.
[2024-10-21 09:02] VITALS: BP 147/70; PULSE 82; RESP 14; TEMP 36.5; O2SAT 97; BMI 28.0
--- OUTSIDE RECORDS SUMMARY | 2024-10-21 09:15 | XMS_ITS | Patient Health Record ---
Author Organization [facility] [address] [place] Address [address] [place] [address] Care Team Providers Care Aesthetics Instructor Name Role Phone David Guevara MD Primary Care Provider Unavailab Tone Claudio Unavailable [phone] Allergies No Known Allergies Reason For Referral [...] Problem Status W/U Status Risk Notes Problem Bilateral atherosclerosis of arteries of lower limbs (disorder) ([id number] ) Atherosclerosis of [place] artery of both lower extremities, with unspecified presence of clinical manifestation (I70.203) Active confirmed Q7(A), Q8(2B), Q9(1B,2 C) Vital Signs Blood pressure diastolic 80 mm Hg 03/18/2024 Height 5ft 10in in 03/18/2024 Blood pressure systolic 125 mm Hg 03/18/2024 Weight 190 lbs 03/18/2024 BMI 27.26 kg/m2 03/18/2024 Encounters Encounter Location Date Provider Diagnosis [facility] [address] 03/18/2024 Tone Thomas Pain in left foot M79.672 ; Pain in left ankle and joints of left foot M25.572 ; Bursitis of intermetatarsal bursa of left foot M77.52 ; Metatarsalgia, left foot M77.42 and Atherosclerosis of [place] artery of both lower extremities, with unspecified presence of clinical manifestation I70.203 [facility] [address] 03/18/2024 Tone Thomas Assessments Encounter Date Diagnosis (ICD Code) Assessment Notes Treatment Notes Treatment Clinical Notes Section Notes 03/18/2024 Pain in left ankle and joints of left foot (ICD-10 - M25.572) 03/18/2024 Pain in left foot (ICD-10 - M79.672) 03/18/2024 Bursitis of intermetatarsal bursa of left foot (ICD-10 - M77.52) 03/18/2024 Metatarsalgia, left foot (ICD-10 - M77.42) 03/18/2024 Atherosclerosis of [place] artery of both lower extremities, with unspecified presence of clinical manifestation (ICD-10 - I70.203) Q7(A), Q8(2B), Q9(1B,2C) Plan Of Treatment Pending Test Test Name Order Date X ray : Foot, right 2V 12/17/2013 X ray : Foot, left 3V 05/28/2013 X ray : Foot, left 3V 03/18/2024 [id number] TENDON SHEATH/LIGAMENT 1 03/23/[id number] TENDON SHEATH/LIGAMENT 0 06/10/2014 12703, [id number]- Neuroma/Injection 04/01/19 16 Insurance Providers Payer Name Payer Address Payer Phone Subscriber Number Group Number Insured Name Patient Relationship to Insured Coverage Start Date Coverage End Date Blue[employer] 65 Medicare Preferred [address] [place] [address] [phone] [id number] David Varma Self - patient is the insured Medical (General) History Medical History History ICD Code Back,Hip,and Knee pain Measles Chicken pox blood clots Arthritis Surgical History Surgery Date(Month/Year) knee surgery shoulder surgery Hospitalization History Reason Date(Month/Year) Patient went to [facility] ER for a blood clot in his left leg. 10/14/2013
--- OUTSIDE RECORDS SUMMARY | 2024-10-21 09:15 | XMS_ITS | Patient Health Record ---
Author Organization [facility] Address [address] [place] [address] Care Team Providers Care Guideman Name Role Phone Ismael (RETIRED) David SHARPE Primary Care Provider Unavailable Quincy Colunga Jr Unavailable Reason For Referral No Information Medications Medication SIG (Take, Route, Frequency, Duration) Notes Start Date End Date Status Colyte with Flavor Packs 240 GM As directed Orally Over the specified time. for 1 day(s) Active Gabapentin 300 MG TAKE 1 CAPSULE BY [facility] 3 TIMES A DAY Oral for 30 Active Rosuvastatin Calcium 5 MG TAKE 1 TABLET BY MOUTH EVERY DAY Oral for 90 Active Problems Problem Type SNOMED Code ICD Code Onset Dates Problem Status W/U Status Risk Notes Problem [id number] Abnormal findings in stool (R19.5) Active confirmed Plan Of Treatment Future Test Test Name Order Date COLONOSCOPY 04/07/2015 COLONOSCOPY 12/19/2017 Insurance Providers Payer Name Payer Address Payer Phone Subscriber Number Group Number Insured Name Patient Relationship to Insured Coverage Start Date Coverage End Date [facility] [address] [place], [place] [id number] DAVID OLVERA Self - patient is the insured Medical (General) History Medical History History ICD Code low back pain Denies [place],DM,CVA,Lung disease,renal dise ase Surgical History Surgery Date(Month/Year) shoulder surgery 1976 left knee arthroscopy 1989 laser eye surgery 2017
== END 2024-10-21 09:22 | disposition home or self-care (01) ==
LOC: HO.HMCSH 08:57
PROVIDERS: PCP Internal Medicine; Visit Provider Internal Medicine
DX: M48.00 Spinal stenosis, site unspecified (principal); R35.1 Nocturia

== ENCOUNTER 2024-10-21 08:57 | Outpatient (REF) | payer MEDICARE, SELFPAY ==
[2024-10-21 13:26] LABS: Appearance Urine Turbid; Glucose Urine UA Negative (Negative); PH 6.0 (5.0-9.0); Specific Gravity - Urine >= 1.030 (1.005-1.025); UMIC TRIGGER UA YES
[2024-10-21 13:48] LABS: Hematocrit 45.7 % (42.0-52.0); Hemoglobin 15.8 g/dl (14.0-18.0); Mean Corpuscular HGB Conc 34.6 g/dl (31.0-36.0); Mean Corpuscular Hemoglobin 35.0 pg (27.0-33.0); Mean Corpuscular Volume 101.3 fL (80.0-98.0); NRBC Abs Auto 0.000 X10*3/uL (0.0-0.012); NRBC Pct Auto 0.0 /100WBC (0.0-0.2); Platelet Count 229 X10*3/uL (160-400); Red Blood Count 4.51 X10*6/uL (4.60-5.80); White Blood Count 8.7 X10*3/uL (4.8-10.8)
[2024-10-21 14:20] LABS: PSA,Total (Free>4and<10) 2.81 ng/mL (0.00-4.00)
[2024-10-21 14:24] LABS: Alanine Aminotransferase 17 U/L (0-40); Albumin Level 4.8 g/dL (3.5-5.0); Alkaline Phosphatase 45 U/L (39-117); Anion Gap 14 (12-20); Aspartate Amino Transferase 32 U/L (5-37); Blood Urea Nitrogen 17 mg/dL (9-16); Calcium 9.5 mg/dL (8.4-10.2); Carbon Dioxide 25 mmol/L (22-29); Chloride 104 mmol/L (96-108); Cholesterol 229 mg/dL (<200); Estimated Glomerular Filt Rate > 60; HDL Cholesterol 72 mg/dL (>40); Hemoglobin A1C 112.5765 umol/L; Potassium 4.1 mmol/L (3.3-5.1); Sodium 139 mmol/L (135-145); Thyroid Stimulating Hormone 0.97 uIU/mL (0.32-4.0); Total Hemoglobin (HGBA1C) 3977.8525 umol/L; Total Protein 7.3 g/dL (6.5-8.0); Triglycerides 138 mg/dL (<150)
== END 2024-10-21 08:58 | disposition home or self-care (01) ==
LOC: HO.HMGCLDS 08:57
PROVIDERS: PCP Internal Medicine; Visit Provider Internal Medicine
DX: M48.061 Spinal stenosis, lumbar region without neurogenic claudication (principal); R35.1 Nocturia; F17.210 Nicotine dependence, cigarettes, uncomplicated; Z12.5 Encounter for screening for malignant neoplasm of prostate; Z13.31 Encounter for screening for depression; Z13.39 Encounter for screening examination for other mental health and behavioral disorders; Z13.1 Encounter for screening for diabetes mellitus; Z13.6 Encounter for screening for cardiovascular disorders
CPT/HCPCS: 36415; 80048; 80061; 80076; 81001; 83036; 84153; 84443; 85027; 96127; 99202

== ENCOUNTER 2025-01-29 07:09 | Outpatient (REF) | payer MEDICARE, SELFPAY ==
--- OUTSIDE RECORDS SUMMARY | 2025-01-29 07:11 | XMS_ITS | Patient Health Record ---
Author Organization [facility] [address] [place] Address [address] [place] [address] Care Team Providers Care Band Machine Operator Name Role Phone David Guevara MD Primary Care Provider Unavailab Tone Claudio Unavailable [phone] Allergies No Known Allergies Reason For Referral [...] atherosclerosis of arteries of lower limbs (disorder) (46014431842262581 ) Atherosclerosis of creek artery of both lower extremities, with unspecified presence of clinical manifestation (I70.203) Active confirmed Q7(A), Q8(2B), Q9(1B,2 C) Vital Signs Blood pressure diastolic 80 mm Hg 03/18/2024 Height 5ft 10in in 03/18/2024 Blood pressure systolic 125 mm Hg 03/18/2024 Weight 190 lbs 03/18/2024 BMI 27.26 kg/m2 03/18/2024 Encounters Encounter Location Date Provider Diagnosis [facility] [address] 03/18/2024 Tone Thomas Pain in left foot M79.672 ; Pain in left ankle and joints of left foot M25.572 ; Bursitis of intermetatarsal bursa of left foot M77.52 ; Metatarsalgia, left foot M77.42 and Atherosclerosis of [place] artery of both lower extremities, with unspecified presence of clinical manifestation I70.203 [facility] [address] 03/18/2024 Tone Thomas Assessments Encounter Date Diagnosis (ICD Code) Assessment Notes Treatment Notes Treatment Clinical Notes Section Notes 03/18/2024 Pain in left ankle and joints of left foot (ICD-10 - M25.572) 03/18/2024 Pain in left foot (ICD-10 - M79.672) 03/18/2024 Bursitis of intermetatarsal bursa of left foot (ICD-10 - M77.52) 03/18/2024 Metatarsalgia, left foot (ICD-10 - M77.42) 03/18/2024 Atherosclerosis of creek artery of both lower extremities, with unspecified presence of clinical manifestation (ICD-10 - I70.203) Q7(A), Q8(2B), Q9(1B,2C) Plan Of Treatment Pending Test Test Name Order Date X ray : Foot, right 2V 12/17/2013 X ray : Foot, left 3V 05/28/2013 X ray : Foot, left 3V 03/18/2024 [id number] TENDON SHEATH/LIGAMENT 1 03/23/[id number] TENDON SHEATH/LIGAMENT 0 06/10/2014 25287, J0702- Neuroma/Injection 04/01/19 16 Insurance Providers Payer Name Payer Address Payer Phone Subscriber Number Group Number Insured Name Patient Relationship to Insured Coverage Start Date Coverage End Date Blue[employer] 65 Medicare Preferred [address] [place] [address] [id number] David Varma Self - patient is the insured Medical (General) History Medical History History ICD Code Back,Hip,and Knee pain Measles Chicken pox blood clots Arthritis Surgical History Surgery Date(Month/Year) knee surgery shoulder surgery Hospitalization History Reason Date(Month/Year) Patient went to [facility] [place] for a blood clot in his left leg. 10/14/2013
--- OUTSIDE RECORDS SUMMARY | 2025-01-29 07:11 | XMS_ITS | Patient Health Record ---
Author Organization [facility] Address [address] [place] [address] Care Team Providers Care Boiler Plant Operator Name Role Phone Ismael (RETIRED) David SHARPE Primary Care Provider Unavailable Quincy Colunga Jr Unavailable Reason For Referral No Information Medications Medication SIG (Take, Route, Frequency, Duration) Notes Start Date End Date Status Colyte with Flavor Packs 240 GM As directed Orally Over the specified time.; Duration: 1 day(s) Active Gabapentin 300 MG TAKE 1 CAPSULE BY [facility] 3 TIMES A DAY Oral; Duration: 30 Active Rosuvastatin Calcium 5 MG TAKE 1 TABLET BY MOUTH EVERY DAY Oral; Duration: 90 Active Problems Problem Type SNOMED Code ICD Code Onset Dates Problem Status W/U Status Risk Notes Problem Abnormal feces (712304059) Abnormal findings in stool (R19.5) Active confirmed Plan Of Treatment Future Test Test Name Order Date COLONOSCOPY 04/07/2015 COLONOSCOPY 12/19/2017 Insurance Providers Payer Name Payer Address Payer Phone Subscriber Number Group Number Insured Name Patient Relationship to Insured Coverage Start Date Coverage End Date [facility] [address] [place], [place] [id number] [phone] [id number] DAVID OLVERA Self - patient is the insured Medical (General) History Medical History History ICD Code low back pain Denies [place],DM,CVA,Lung disease,renal dise ase Surgical History Surgery Date(Month/Year) shoulder surgery 1976 left knee arthroscopy 1989 laser eye surgery 2017
[2025-01-29 10:51] LABS: Appearance Urine Clear; Glucose Urine UA Negative (Negative); PH 6.5 (5.0-9.0); Specific Gravity - Urine 1.015 (1.005-1.025)
[2025-01-29 11:12] LABS: Cholesterol 188 mg/dL (<200); HDL Cholesterol 51 mg/dL (>40); Triglycerides 101 mg/dL (<150)
[2025-01-29 12:06] LABS: Folate 2.2 ng/mL (> or = 4.0); Vitamin B12 630 pg/mL (200-900)
== END 2025-01-29 07:10 | disposition home or self-care (01) ==
LOC: HO.HMGCLDS 07:09
PROVIDERS: PCP Internal Medicine; Visit Provider Internal Medicine
DX: E78.5 Hyperlipidemia, unspecified (principal); M48.00 Spinal stenosis, site unspecified
CPT/HCPCS: 36415; 80061; 81003; 82607; 82746

== ENCOUNTER 2025-02-10 13:54 | Outpatient (AMB) | payer MEDICARE, SELFPAY ==
[2025-02-10 13:56] VITALS: BP 148/64; PULSE 82; RESP 16; TEMP 36.5; O2SAT 97; BMI 29.0
--- NOTE | 2025-02-10 13:56 | A.OFFPC_ITS ---
Vital Signs 02/10/25 13:56 Height 5 ft 8.9 in Weight 196 lb BMI 29.0 BP 148/64 H Blood Pressure Location Rt brachial Position Sitting Respiration 16 Pulse 82 Pulse Source Pulse Oximeter Temp 97.7 F Temp Source Temporal Artery Scan Pulse Oximetry (%) 97 Oxygen Delivery Method Room Air Intake Visit Reasons: physical - see comments Vessel Traffic Officer Required: No Accompanied by: Self / Same As Patient Allergies No Known Allergies Allergy (Unverified 02/10/25 13:57) Tobacco use date assessed: 10/21/24 Dental Screening Dental Screen Date: 10/21/24 HPI HPI Comments History of Present Illness Details History of Present Illness - The patient is a 74-year-old individua l presenting for follow-up to discuss a new prescription for folic acid. - Folic acid deficiency: Blood work from October revealed macrocytosis, which prompted the prescription for folic acid. - The patient was advised to stop drinki ng alcohol, which the patient has done since before the October visit, due to alcohol's inhibition of folic acid absorption. - Chronic back pain: The patient reports back pain that occurs after standing for a while and is relieved immediately upon sitting down. - Past workup includes two MRIs, treatme nt at a [facility] clinic with two cortisone injections, and a surgical consultation, which the patient declined. - Medication History: The patient is pre scribed gabapentin 800 mg three times a day for back pain but has not been taking it as prescribed. - The patient recently resumed taking it for a flare-up, breaking an 800 mg pill in half and taking 400 mg, which helped the pain. - The patient is taking Zetia for choles terol, and January lab results showed improvement in cholesterol numbers. - Preventative Health: The patient was s upposed to receive a Cologuard test but reports it never arrived. - The patient received the influenza vac cine at [facility]. Social History - Tobacco Use: The patient smokes one pa ck of cigarettes per day. - Alcohol Use: The patient reports quitt ing alcohol in October and has not had a drink since. - Functional Status: The patient reports being active and able to drive. - Activity: The patient is able to work around the house but experiences back pain if on the patient's feet for a long time. - The patient has a list of strengthenin g exercises from physical therapy but does not do them regularly. Results - Labs (October): Blood work showed macro cytosis. - Labs (January): Reported as fine; cho lesterol numbers are better, and PSA was within range. - Imaging: History of two MRIs for back pain. [facility] Medical History Spinal stenosis Surgical History History of colonoscopy (~02/20/18) Family History Father Pancreatic cancer Mother Stroke Social History Housing: House Alcohol intake: current Alcohol intake frequency: holidays/special occasions only Patient Tobacco Use Status: Current everyday Tobacco user Tobacco use type: Cigarette Cigarette Packs Per Day: 1 Cigarettes Per Day: 20 service: No Current occupational status: retired Cognitive needs: No Hearing needs: No Vision needs: Yes (reading glasses) Questionnaire PHQ-9 Over the last 2 weeks, how often have you been bothered by any of the following problems? 1. Little interest or pleasure in doing things: not at all 2. Feeling down, depressed, or hopeless: not at all 3. Trouble falling or staying asleep, or sleeping too much: not at all 4. Feeling tired or having little energy: not at all 5. Poor appetite or overeating: not at all 6. Feeling bad about yourself - or that you are a failure or have let yourself or your family down: not at all 7. Trouble concentrating on things, such as reading the newspaper or watching television: not at all 8. Moving or speaking so slowly that other people could have noticed. Or the opposite - being so fidgety or restless that you have been moving around a lot more than usual: not at all 9. Thoughts that you would be better off or of hurting yourself in some way: not at all Total score: 0 Depression Screening Interpretation: Negative Depression Screening Done: Yes Source: Developed by Drs. Torres De La Paz, Sara Alexander, Dale Roque and colleagues, with an educational patsy from [employer]. Thrive Questionnaire Date Thrive assessed: 10/21/24 I am a: Patient What is your living situation today?: I have a steady place to live Within the past 12 months, did the food you bought not last and you didn't have the money to get more?: Never true Within the past 12 months, did you worry whether your food would run out before you got money to buy more?: Never true Do you have trouble paying for medicines?: No Do you have trouble getting transportation to medical appointments?: No Do you have trouble paying your heating and electricity bill?: No Do you have trouble taking care of your child, family member or friend?: No Do you have trouble with day-to-day activities such as bathing, preparing meals, shopping, managing finances, etc.?: No Are you currently unemployed and looking for a job?: No Are you interested in more education?: No Please select the resources that you would like help with: None THRIVE Score: 0 AUDIT C Alcohol Use Questionnaire (AUDIT-C) 1. How often do you have a drink containing alcohol?: Monthly or less 2. How many drinks containing alcohol do you have on a typical day when you are drinking?: 1 or 2 3. How often do you have six or more drinks on one occasion?: Never Total Score: 1 CHARITY-7 AMB Questionnaire CHARITY-7 Date CHARITY - 7 assessed: 10/21/24 Feeling nervous, anxious, or on edge: 0 = Not at all Not being able to stop or control worryin = Not at all Worrying too much about different things: 0 = Not at all Trouble relaxin = Not at all Being so restless that it is hard to sit still: 0 = Not at all Becoming easily annoyed or irritable: 0 = Not at all Feeling afraid as if something awful might happen: 0 = Not at all Total CHARITY-7 score (0-4 normal; 5-9 mild; 10-14 moderate; 15-21 severe): 0 Source: Developed by Drs. Torres De La Paz, Sara Alexander, Dale Roque and colleagues, with an educational patsy from [employer]. Review of Systems Narrative Review of Systems - Musculoskeletal: Reports generalized aches and pains that are worse in the morning and improve as the day progresses. - Reports back pain that occurs with prolonged standing and is relieved by sitting. - Neurological: Denies numbness in the hands and legs. - Genitourinary: Reports no issues with urination. Physical exam (Primary Care) Vital Signs: Last Vital Signs Temp 97.7 F 02/10/25 13:56 Pulse 82 02/10/25 13:56 Resp 16 02/10/25 13:56 BP 148/64 H 02/10/25 13:56 Pulse Ox 97 02/10/25 13:56 Oxygen Delivery Method Room Air 02/10/25 13:56 BMI result Body Mass Index 29.0 Tobacco/Smoking Status: Tobacco use Status Tobacco use date assessed 10/21/24 02/10/25 13:57 Patient Tobacco Use Status Current everyday Tobacco 02/10/25 13:57 Tobacco use type Cigarette 02/10/25 13:57 PHQ-9: PHQ-9 Score PHQ-9: Total score 0 02/10/25 14:03 Depression Screening Interpretation: Negative Thrive Assessment: Date of Thrive Assessment Date Thrive assessed 10/21/24 02/10/25 13:57 Narrative Physical Exam General: Cooperative and healthy appearing Nutritional Appearance: Well nourished Orientation/consciousness: Patient oriented x3 Limitations: No limitations Head: Normal to inspection General: Appearance normal, both eyes and all related structures Neck: Normal visual inspection Chest: Normal palpation of entire chest wall Respiratory: Normal respiratory effort Neurology: Patient oriented x3 Office Procedures Flu Questionnaire Does the patient have a severe egg allergy?: No Does the patient have severe life threatening allergies?: No Does the patient have a fever or illness today?: No Has the patient ever had Guillain-Hagerhill Syndrome?: No Has the patient ever had any past reaction to a flu shot?: No Immunizations Fluarix [id number] (PF) 45 mcg (15 mcg x 3)/0.5 mL IM syringe Performing Provider: Reilly Self MD [facility] [place] [facility] Documented (not given) by: NAPOLEON Mcgraw on 02/10/25 14:09 Reason Not Given: Received Previously Coding Level of Care Code Complex visit Add On G2211 Diagnoses Macrocytosis D75.89 Assessment & Plan Assessment & Plan (1) Macrocytosis: Code(s): D75.89 - Other specified diseases of blood and blood-forming organs Plan Plan - Folic acid deficiency: The patient was instructed to take folic acid one tablet daily. - A follow-up visit is scheduled in one month to repeat labs. - Back pain: The patient will continue to take gabapentin 400 mg as needed for pain. - Recommended doing more strengthening exercises for the back. - Hypercholesterolemia: The patient will continue taking Zetia once daily. - Tobacco use: Counseled the patient on smoking risks. - Offered help with cessation and discussed low-dose CT for lung cancer screening, which the patient deferred for now. - Colon cancer screening: A Cologuard kit will be sent to the patient's home. - Medication refills: A refill for gabapentin was sent to [facility]. Discussion Notes I discussed the new prescription for folic acid with the patient, explaining that it is for a vitamin deficiency causing macrocytosis, which can be related to age and past alcohol use. I explained that the vitamin is important for the insulation of nerves and that a deficiency can lead to numbness in the hands and legs. I reassured the patient that taking folic acid is safe and the danger lies in not taking it. We reviewed medications, and I clarified the patient's current use of gabapentin 400 mg as needed for back pain, rather than the prescribed [id number] dosing. I encouraged the patient to perform back strengthening exercises. I addressed the overdue colon cancer screening and will resend the Cologuard kit. I also discussed tobacco use, briefly touching on the risk for lung cancer and the option for a low-dose CT screening, which the patient declined at this time. I offered assistance with smoking cessation when the patient is ready. We will plan to follow up in about a month to recheck lab work. Patient Instructions - Take one tablet of folic acid each day. - Continue to abstain from drinking alcohol. - You may take gabapentin 400 mg as needed for your back pain. - Try to do the strengthening exercises for your back that you were given. - We are sending another Cologuard colon cancer screening kit to your home. - Let us know if you need help with quitting smoking. - Schedule a follow-up appointment in about one month to have your blood work checked again. Orders: Orders AMB Cologuard Today Z12.11 - Encounter for screening for malignant neoplasm of colon, Z12.12 - Encounter for screening for malignant neoplasm of rectum Influenza [id number] Immunization Today Z23 - Encounter for immunization Medications: New gabapentin 800 mg PO DAILY 90 tabs 0RF
--- OUTSIDE RECORDS SUMMARY | 2025-02-10 17:47 | XMS_ITS | Patient Health Record ---
Author Organization [facility] Address [address] [place] [address] Care Team Providers Care Coat Operator Insulator Name Role Phone David Guevara MD Primary Care Provider Unavailab Tone Claudio Unavailable [phone] Allergies No Known Allergies Reason For Referral [...] atherosclerosis of arteries of lower limbs (disorder) ([id number] ) Atherosclerosis of [place] artery of both lower extremities, with unspecified presence of clinical manifestation (I70.203) Active confirmed Q7(A), Q8(2B), Q9(1B,2 C) Vital Signs Blood pressure diastolic 80 mm Hg 03/18/2024 Height 5ft 10in in 03/18/2024 Blood pressure systolic 125 mm Hg 03/18/2024 Weight 190 lbs 03/18/2024 BMI 27.26 kg/m2 03/18/2024 Encounters Encounter Location Date Provider Diagnosis [facility] [address] 03/18/2024 Tone Thomas Pain in left foot M79.672 ; Pain in left ankle and joints of left foot M25.572 ; Bursitis of intermetatarsal bursa of left foot M77.52 ; Metatarsalgia, left foot M77.42 and Atherosclerosis of [place] artery of both lower extremities, with unspecified presence of clinical manifestation I70.[address] [facility] [address] 03/18/2024 Tone Thomas Assessments Encounter Date Diagnosis (ICD Code) Assessment Notes Treatment Notes Treatment Clinical Notes Section Notes 03/18/2024 Pain in left ankle and joints of left foot (ICD-10 - M25.572) 03/18/2024 Pain in left foot (ICD-10 - M79.672) 03/18/2024 Bursitis of intermetatarsal bursa of left foot (ICD-10 - M77.52) 03/18/2024 Metatarsalgia, left foot (ICD-10 - M77.42) 03/18/2024 Atherosclerosis of [place] artery of both lower extremities, with unspecified presence of clinical manifestation (ICD-10 - I70.203) Q7(A), Q8(2B), Q9(1B,2C) Plan Of Treatment Pending Test Test Name Order Date X ray : Foot, right 2V 12/17/2013 X ray : Foot, left 3V 05/28/2013 X ray : Foot, left 3V 03/18/2024 [id number] TENDON SHEATH/LIGAMENT 1 03/23/[id number] TENDON SHEATH/LIGAMENT 0 06/10/2014 55284, J0702- Neuroma/Injection 04/01/19 16 Insurance Providers Payer Name Payer Address Payer Phone Subscriber Number Group Number Insured Name Patient Relationship to Insured Coverage Start Date Coverage End Date [employer] 65 Medicare Preferred [address] [place] [address] [phone] [id number] David Varma Self - patient is the insured Medical (General) History Medical History History ICD Code Back,Hip,and Knee pain Measles Chicken pox blood clots Arthritis Surgical History Surgery Date(Month/Year) knee surgery shoulder surgery Hospitalization History Reason Date(Month/Year) Patient went to [facility] for a blood clot in his left leg. 10/14/2013
--- OUTSIDE RECORDS SUMMARY | 2025-02-10 17:47 | XMS_ITS | Patient Health Record ---
Author Organization [facility] Address [address] [place] [address] Care Team Providers Care Sign Manufacturer Name Role Phone Ismael (RETIRED) David SHARPE Primary Care Provider Unavailable Quincy Colunga Jr Unavailable Reason For Referral No Information Medications Medication SIG (Take, Route, Frequency, Duration) Notes Start Date End Date Status Colyte with Flavor Packs 240 GM Solution Reconstituted As directed Orally Over the specified time.; Duration: 1 day(s) Active Gabapentin 300 MG Capsule TAKE 1 CAPSULE BY MOUTH 3 TIMES A DAY Oral; Duration: 30 Active Rosuvastatin Calcium 5 MG Tablet TAKE 1 TABLET BY MOUTH EVERY DAY Oral; Duration: 90 Active Social History Social History Additional Details Category Social Info Options Details Miscellaneous: Marital status: Occupation: retired Problems Problem Type SNOMED Code ICD Code Onset Dates Problem Status W/U Status Risk Notes Problem Abnormal feces ([id number]) Abnormal findings in stool (R19.5) Active confirmed Plan Of Treatment Future Test Test Name Order Date COLONOSCOPY 04/07/2015 COLONOSCOPY 12/19/2017 Insurance Providers Payer Name Payer Address Payer Phone Subscriber Number Group Number Insured Name Patient Relationship to Insured Coverage Start Date Coverage End Date [facility] [address] [place], [place] [id number] [phone] [id number] DAVID OLVERA Self - patient is the insured Medical (General) History Medical History History ICD Code low back pain Denies OR,DM,CVA,Lung disease,renal dise ase Surgical History Surgery Date(Month/Year) shoulder surgery 1976 left knee arthroscopy 1989 laser eye surgery 2017
== END 2025-02-10 14:28 | disposition home or self-care (01) ==
LOC: HO.HMCSH 13:54
PROVIDERS: PCP Internal Medicine; Visit Provider Internal Medicine
DX: D75.89 Other specified diseases of blood and blood-forming organs (principal); Z23 Encounter for immunization

== ENCOUNTER → 2025-02-10 13:54 | Outpatient (BNVA) | payer MEDICARE, SELFPAY | PROVIDERS: PCP Internal Medicine; Visit Provider Internal Medicine | DX: D75.89 Other specified diseases of blood and blood-forming organs (principal); M54.9 Dorsalgia, unspecified; G89.29 Other chronic pain; Z28.89 Immunization not carried out for other reason | CPT/HCPCS: 90471; 96127; 99212 ==